=== PATIENT | male | born 1940 | race Caucasian/White ===

== ENCOUNTER 2018-07-09 15:42 | Inpatient (IN) | payer MEDICARE, OTHER ==
[~2018-07-09] VITALS: Ht 167.6 cm; Wt 56.6 kg
[2018-07-09 19:00] VITALS: BP 148/75
[2018-07-09] MEDS ORDERED: morphine 2 MG/ML inj. syringe IV PRN (19:05)
[2018-07-09] MEDS ORDERED: ondansetron/PF 4mg/2ml inj IV PRN (19:05)
[2018-07-09] MEDS ORDERED: HYDROcodone/acetaminophen 10/325mg tab PO PRN (19:05)
[2018-07-09] MEDS ORDERED: potassium Cl 40MEQ/250ML bag 250 ML IV SCH (19:05)
[2018-07-09] MEDS ORDERED: potassium Cl 40MEQ/NS 500ml 500 ML IV PRN ×2 (19:05)
[2018-07-09] MEDS ORDERED: acetaminophen 325mg tablet PO PRN ×2 (19:05)
[2018-07-09 20:00] VITALS: BP 132/66
[2018-07-09] MEDS: docusate sod 100mg capsule PO SCH (20:00)
[2018-07-09 20:09] LABS: ALANINE AMINOTRANSFERASE 14 U/L (12-78); ALBUMIN 3.1 G/DL (3.4-5.0); ALKALINE PHOSPHATASE 87 IU/L (46-116); ANION GAP 9 (8-16); ASPARTATE AMINO TRANSFERASE 14 U/L (10-37); BLOOD UREA NITROGEN 28 MG/DL (7-18); BUN/CREATININE RATIO 19.4 (5.4-32.0); CHLORIDE 99 MMOL/L (99-107); CREATININE 1.44 MG/DL (0.60-1.10); GLUCOSE 94 MG/DL (70-104); MAGNESIUM 1.6 MG/DL (1.5-2.4); PHOSPHORUS 2.7 MG/DL (2.3-4.5); SODIUM 142 MMOL/L (135-145); TOTAL CARBON DIOXIDE 33.7 MMOL/L (24-32); TOTAL PROTEIN 6.2 G/DL (6.4-8.2); eGFR 48 ML/MIN
[2018-07-09 20:11] LABS: POTASSIUM 2.5 MMOL/L (3.5-5.1)
[2018-07-09 20:12] LABS: INR 1.1 INR; PARTIAL THROMBOPLASTIN TIME 45 SECONDS (22-32); PROTHROMBIN TIME 10.7 SECONDS (9.0-12.0)
[2018-07-09 20:19] LABS: WHITE BLOOD COUNT 3.5 X10'3 (4.5-11.0)
[2018-07-09 20:20] LABS: HEMATOCRIT 32.6 % (42.0-52.0); HEMOGLOBIN 11.4 g/dl (14.0-17.9); MEAN CORPUSCULAR HEMOGLOBIN 31.6 PG (27.0-31.0); MEAN CORPUSCULAR HGB CONC 34.8 % (33.0-36.5); MEAN CORPUSCULAR VOLUME 90.6 FL (78-98); MEAN PLATELET VOLUME 12.1 FL (7.4-10.4); PLATELET COUNT 105 X10'3 (140-440); RED CELL DISTRIBUTION WIDTH 14.3 % (11.5-14.5)
[2018-07-09 20:42] LABS: TOTAL CELLS COUNTED 100
[2018-07-09 20:43] LABS: GIANT PLATELET FEW; LARGE PLATELETS FEW; PLATELET ESTIMATE DECREASED
[2018-07-09] MEDS: normal saline 1000ml 1,000 ML IV SCH (20:46)
[2018-07-09] MEDS: piperacillin/tazo 3.375gm/50ml 50 ML IV SCH (20:46)
[2018-07-09 21:00] VITALS: BP 133/68
[2018-07-09] MEDS: potassium Cl 40MEQ/250ML bag 250 ML IV PRN ×2 (21:20→23:34)
[2018-07-09 23:00] VITALS: BP 134/72
[2018-07-09] MEDS: morphine 4 MG/ML inj SYRINge IV PRN (23:13)
[2018-07-10] VITALS (18 sets, daily range): BP systolic 102–151; BP diastolic 58–87
[2018-07-10] MEDS: piperacillin/tazo 3.375gm/50ml 50 ML IV SCH ×4 (02:27→20:16)
[2018-07-10] MEDS: morphine 4 MG/ML inj SYRINge IV PRN ×3 (03:23→13:57)
[2018-07-10 04:47] LABS: ALANINE AMINOTRANSFERASE 13 U/L (12-78); ALBUMIN 2.9 G/DL (3.4-5.0); ALBUMIN/GLOBULIN RATIO 1.1 (1.1-1.5); ALKALINE PHOSPHATASE 78 IU/L (46-116); ANION GAP 8 (8-16); ASPARTATE AMINO TRANSFERASE 14 U/L (10-37); BILIRUBIN,TOTAL 1.1 MG/DL (0.1-1.0); BLOOD UREA NITROGEN 26 MG/DL (7-18); BUN/CREATININE RATIO 17.8 (5.4-32.0); CALCIUM 8.6 MG/DL (8.5-10.1); CHLORIDE 104 MMOL/L (99-107); CREATININE 1.46 MG/DL (0.60-1.10); GLUCOSE 95 MG/DL (70-104); MAGNESIUM 1.6 MG/DL (1.5-2.4); PHOSPHORUS 2.5 MG/DL (2.3-4.5); POTASSIUM 3.1 MMOL/L (3.5-5.1); SODIUM 143 MMOL/L (135-145); TOTAL CARBON DIOXIDE 30.7 MMOL/L (24-32); TOTAL PROTEIN 5.6 G/DL (6.4-8.2); eGFR 47 ML/MIN
[2018-07-10 05:12] LABS: HEMATOCRIT 29.7 % (42.0-52.0); HEMOGLOBIN 10.3 g/dl (14.0-17.9); MEAN CORPUSCULAR HEMOGLOBIN 31.4 PG (27.0-31.0); MEAN CORPUSCULAR HGB CONC 34.8 % (33.0-36.5); MEAN CORPUSCULAR VOLUME 90.5 FL (78-98); PLATELET COUNT 88 X10'3 (140-440); RED BLOOD COUNT 3.28 X10'6 (4.70-6.10); RED CELL DISTRIBUTION WIDTH 14.5 % (11.5-14.5)
[2018-07-10 05:15] LABS: MEAN PLATELET VOLUME 11.8 FL (7.4-10.4)
[2018-07-10 05:38] LABS: GIANT PLATELET FEW; LARGE PLATELETS FEW; PLATELET ESTIMATE DECREASED; TOTAL CELLS COUNTED 100
[2018-07-10] MEDS: docusate sod 100mg capsule PO SCH ×2 (07:21→20:00)
[2018-07-10] MEDS: normal saline 1000ml 1,000 ML IV SCH ×2 (09:22→21:44)
[2018-07-10] MEDS ORDERED: NO HOME MEDS (13:04)
[2018-07-11] VITALS: BP 114/62
[2018-07-11] MEDS: piperacillin/tazo 3.375gm/50ml 50 ML IV SCH ×4 (02:18→19:56)
[2018-07-11] MEDS: normal saline 1000ml 1,000 ML IV SCH ×2 (02:19→16:52)
[2018-07-11 06:04] LABS: ALANINE AMINOTRANSFERASE 14 U/L (12-78); ALBUMIN 2.8 G/DL (3.4-5.0); ALKALINE PHOSPHATASE 77 IU/L (46-116); ANION GAP 14 (8-16); ASPARTATE AMINO TRANSFERASE 16 U/L (10-37); BILIRUBIN,TOTAL 0.8 MG/DL (0.1-1.0); BLOOD UREA NITROGEN 22 MG/DL (7-18); BUN/CREATININE RATIO 17.2 (5.4-32.0); CALCIUM 8.7 MG/DL (8.5-10.1); CHLORIDE 107 MMOL/L (99-107); CREATININE 1.28 MG/DL (0.60-1.10); GLUCOSE 83 MG/DL (70-104); MAGNESIUM 1.6 MG/DL (1.5-2.4); PHOSPHORUS 2.6 MG/DL (2.3-4.5); POTASSIUM 3.2 MMOL/L (3.5-5.1); SODIUM 144 MMOL/L (135-145); TOTAL CARBON DIOXIDE 22.8 MMOL/L (24-32); TOTAL PROTEIN 5.5 G/DL (6.4-8.2); eGFR 55 ML/MIN
[2018-07-11 07:50] VITALS: BP 124/63
[2018-07-11 07:57] LABS: HEMATOCRIT 29.6 % (42.0-52.0); HEMOGLOBIN 10.2 g/dl (14.0-17.9); MEAN CORPUSCULAR HEMOGLOBIN 31.2 PG (27.0-31.0); MEAN CORPUSCULAR HGB CONC 34.3 % (33.0-36.5); PLATELET COUNT 99 X10'3 (140-440); RED BLOOD COUNT 3.25 X10'6 (4.70-6.10); RED CELL DISTRIBUTION WIDTH 15.5 % (11.5-14.5)
[2018-07-11] MEDS: docusate sod 100mg capsule PO SCH ×2 (08:00→20:00)
[2018-07-11] MEDS: multivitamins, therapeutics tablet PO SCH (08:01)
[2018-07-11] MEDS: thiamine 100mg tablet PO SCH (08:01)
[2018-07-11] MEDS: folic acid 1mg tablet PO SCH (08:01)
[2018-07-11] MEDS: potassium Cl 20 mEq SR tablet PO PRN ×3 (08:08→20:32)
[2018-07-11 08:33] LABS: MEAN PLATELET VOLUME 12.4 FL (7.4-10.4)
[2018-07-11 08:43] LABS: PLATELET ESTIMATE DECREASED; TOTAL CELLS COUNTED 100
[2018-07-11 08:44] LABS: LARGE PLATELETS FEW
[2018-07-11 11:46] VITALS: BP 125/72
[2018-07-11 19:00] VITALS: BP 117/66
[2018-07-12] VITALS: BP 121/74
[2018-07-12] MEDS: piperacillin/tazo 3.375gm/50ml 50 ML IV SCH ×2 (01:46→07:26)
[2018-07-12 05:27] LABS: HEMATOCRIT 27.7 % (42.0-52.0); HEMOGLOBIN 9.3 g/dl (14.0-17.9); MEAN CORPUSCULAR HEMOGLOBIN 30.5 PG (27.0-31.0); MEAN CORPUSCULAR HGB CONC 33.5 % (33.0-36.5); MEAN CORPUSCULAR VOLUME 91.1 FL (78-98); MEAN PLATELET VOLUME 13.6 FL (7.4-10.4); PLATELET COUNT 99 X10'3 (140-440); RED BLOOD COUNT 3.03 X10'6 (4.70-6.10); RED CELL DISTRIBUTION WIDTH 15.3 % (11.5-14.5); WHITE BLOOD COUNT 3.2 X10'3 (4.5-11.0)
[2018-07-12 05:38] LABS: ALANINE AMINOTRANSFERASE 15 U/L (12-78); ALBUMIN 2.9 G/DL (3.4-5.0); ALKALINE PHOSPHATASE 83 IU/L (46-116); ANION GAP 16 (8-16); ASPARTATE AMINO TRANSFERASE 17 U/L (10-37); BILIRUBIN,TOTAL 0.6 MG/DL (0.1-1.0); BLOOD UREA NITROGEN 14 MG/DL (7-18); BUN/CREATININE RATIO 11.7 (5.4-32.0); CALCIUM 8.6 MG/DL (8.5-10.1); CHLORIDE 106 MMOL/L (99-107); GLUCOSE 79 MG/DL (70-104); MAGNESIUM 1.6 MG/DL (1.5-2.4); PHOSPHORUS 2.4 MG/DL (2.3-4.5); POTASSIUM 3.6 MMOL/L (3.5-5.1); SODIUM 142 MMOL/L (135-145); TOTAL CARBON DIOXIDE 20.5 MMOL/L (24-32); TOTAL PROTEIN 5.8 G/DL (6.4-8.2); eGFR 59 ML/MIN
[2018-07-12 06:06] LABS: ANISOCYTOSIS 1+; LARGE PLATELETS FEW; PLATELET ESTIMATE DECREASED; POLYCHROMASIA 1+; TOTAL CELLS COUNTED 100
[2018-07-12] MEDS: normal saline 1000ml 1,000 ML IV SCH (07:24)
[2018-07-12] MEDS: multivitamins, therapeutics tablet PO SCH (07:25)
[2018-07-12] MEDS: thiamine 100mg tablet PO SCH (07:25)
[2018-07-12] MEDS: folic acid 1mg tablet PO SCH (07:25)
[2018-07-12] MEDS: docusate sod 100mg capsule PO SCH ×2 (07:29→20:00)
[2018-07-12 07:55] VITALS: BP 133/70
[2018-07-12 12:14] VITALS: BP 122/66
[2018-07-12 20:00] VITALS: BP 125/67
[2018-07-13 00:15] VITALS: BP 103/56
[2018-07-13] MEDS: normal saline 1000ml 1,000 ML IV SCH (03:04)
[2018-07-13 06:18] LABS: HEMATOCRIT 28.7 % (42.0-52.0); HEMOGLOBIN 9.7 g/dl (14.0-17.9); MEAN CORPUSCULAR HEMOGLOBIN 30.8 PG (27.0-31.0); MEAN CORPUSCULAR HGB CONC 33.7 % (33.0-36.5); MEAN CORPUSCULAR VOLUME 91.3 FL (78-98); MEAN PLATELET VOLUME 13.2 FL (7.4-10.4); PLATELET COUNT 112 X10'3 (140-440); RED BLOOD COUNT 3.15 X10'6 (4.70-6.10); RED CELL DISTRIBUTION WIDTH 15.7 % (11.5-14.5); WHITE BLOOD COUNT 3.2 X10'3 (4.5-11.0)
[2018-07-13 06:24] LABS: ALANINE AMINOTRANSFERASE 12 U/L (12-78); ALBUMIN 2.8 G/DL (3.4-5.0); ALKALINE PHOSPHATASE 72 IU/L (46-116); ANION GAP 12 (8-16); ASPARTATE AMINO TRANSFERASE 13 U/L (10-37); BILIRUBIN,TOTAL 0.4 MG/DL (0.1-1.0); BLOOD UREA NITROGEN 10 MG/DL (7-18); BUN/CREATININE RATIO 8.8 (5.4-32.0); CALCIUM 8.3 MG/DL (8.5-10.1); CHLORIDE 107 MMOL/L (99-107); CREATININE 1.13 MG/DL (0.60-1.10); GLUCOSE 83 MG/DL (70-104); MAGNESIUM 1.6 MG/DL (1.5-2.4); PHOSPHORUS 2.2 MG/DL (2.3-4.5); SODIUM 142 MMOL/L (135-145); TOTAL CARBON DIOXIDE 22.9 MMOL/L (24-32); TOTAL PROTEIN 5.5 G/DL (6.4-8.2); eGFR 63 ML/MIN
[2018-07-13 06:27] LABS: POTASSIUM 2.8 MMOL/L (3.5-5.1)
[2018-07-13 07:09] LABS: ANISOCYTOSIS 1+; PLATELET ESTIMATE DECREASED; POLYCHROMASIA 1+; TOTAL CELLS COUNTED 100
[2018-07-13 07:10] LABS: HYPOCHROMASIA 1+; LARGE PLATELETS MODERATE
[2018-07-13 08:00] VITALS: BP 103/70
[2018-07-13] MEDS: docusate sod 100mg capsule PO SCH (08:00)
[2018-07-13] MEDS: multivitamins, therapeutics tablet PO SCH (08:27)
[2018-07-13] MEDS: potassium Cl 20 mEq SR tablet PO PRN ×2 (08:27→12:35)
[2018-07-13] MEDS: thiamine 100mg tablet PO SCH (08:27)
[2018-07-13] MEDS: folic acid 1mg tablet PO SCH (08:27)
== END 2018-07-13 13:06 | disposition home or self-care (01) | DRG 56 ==
LOC: CICU 2S 18:48 → SUR 3N 07-10 16:15
PROVIDERS: ADMIT Internal Medicine Critical Care Medicine; ATTEND Internal Medicine Critical Care Medicine
DX: G31.2 Degeneration of nervous system due to alcohol (principal); J69.0 Pneumonitis due to inhalation of food and vomit; F10.239 Alcohol dependence with withdrawal, unspecified; D61.818 Other pancytopenia; R19.7 Diarrhea, unspecified; F17.200 Nicotine dependence, unspecified, uncomplicated; G40.909 Epilepsy, unspecified, not intractable, without status epilepticus; R45.1 Restlessness and agitation
CPT/HCPCS: 36415; 71045; 76700; 80053; 82140; 82948; 83605; 83735; 84100; 85025; 85610; 85730; 87040; 87070; 97110; 97116; 97161; 97530; G0378; J2270; J2405; J2543; J3480; J7030